=== PATIENT | female | born 1960 | race Caucasian/White ===

== ENCOUNTER 2016-10-10 13:29 | Emergency (ER) | payer MEDICAID, MEDICARE ==
[2016-10-10] MEDS ORDERED: MORPHINE SULFATE 10 MG/ML INJ IV ONE (14:57)
[2016-10-10] MEDS ORDERED: ONDANSETRON HCL INJ/PF 4 MG/2 ML SDV IV ONE (14:57)
--- NOTE | 2016-10-10 14:59 | ER Document Report ---
ED Medical Screen (RME) - General Chief Complaint: Flank Pain Stated Complaint: RIGHT FLANK PAIN Time Seen by Provider: 10/10/16 14:47 Mode of Arrival: Ambulatory Information source: Patient Notes: This is a 56-year-old female with a history of chronic pain and fibromyalgia who presents with sudden onset of right flank pain this morning. The flank pain radiates to the right side of the abdomen. She is also noted hematuria. No nausea or vomiting. No fevers or chills. No dysuria. She states it feels similar to prior kidney stone. I have greeted and performed a rapid initial assessment of this patient. A comprehensive ED assessment and evaluation of the patient, analysis of test results and completion of the medical decision making process will be conducted by additional ED providers. TRAVEL OUTSIDE OF THE [place] IN LAST 30 DAYS: No - Related Data Allergies/Adverse Reactions: No Known Allergies Allergy (Verified 10/10/16 13:36) Past Medical History - General Information source: Patient - Social History Cigarette use (# per day): Yes Frequency of alcohol use: Rare Drug Abuse: None Renal/ Medical History: Reports: Hx Kidney Stones. Denies: Hx Peritoneal Dialysis Physical Exam - Vital signs Vitals: Temp Pulse Resp BP Pulse Ox 97.8 F 81 16 165/94 H 98 10/10/16 13:36 10/10/16 13:36 10/10/16 13:36 10/10/16 13:36 10/10/16 13:36 Course - Vital Signs Vital signs: Temp Pulse Resp BP Pulse Ox 97.9 F 62 18 110/62 94 10/10/16 17:32 10/10/16 17:32 10/10/16 17:32 10/10/16 17:32 10/10/16 17:32 - Laboratory Result Diagrams: 10/10/16 15:40 10/10/16 15:40 Laboratory results interpreted by me: 10/10/16 10/10/16 10/10/16 15:20 15:40 15:40 MCV 100 H RDW 14.3 H Sodium 145.9 H Chloride 111 H Carbon Dioxide 21 L Urine Protein 100 H Urine Blood LARGE H Doctor's Discharge - Discharge Clinical Impression: Right ureteral calculus Condition: Stable Disposition: HOME, SELF-CARE Additional Instructions: KIDNEY STONE: You are passing or have passed a kidney stone. These stones are usually due to increased calcium or uric acid concentrations in your urine. Stones within the kidney itself are not painful. The pain occurs as the stone leaves the kidney to pass down the long tube, called the ureter, leading to the bladder. If the stone is small, it will usually pass by itself. Most patients can pass the stone at home. You will usually receive medications for pain, nausea or vomiting, and sometimes a medication to assist in passing the kidney stone. However, if the pain is very severe or if vomiting prevents you from taking oral pain medications, you may need to return for further treatment. Drink three or four quarts of fluids per day. You will be given pain medication (if needed) and urine strainers. Strain all your urine to see if the stone passes. If your doctor has asked you to bring the stone in for analysis, return with the stone once it has passed. Return if pain or vomiting become severe, if you develop a high fever, if you are unable to pass your urine, or if other unusual symptoms occur. TORADOL INJECTION: You have been given an injection of ketorolac tromethamine (Toradol). This is an excellent, safe drug for pain control. It also has potent antiinflammatory action. You should have significant pain relief within about one hour. Toradol is not addicting and is non-sedating. It does not interfere with driving or work. Call or return if you develop itching, hives, shortness of breath, or rash. ANTINAUSEA MEDICATION: You have been given a medication to suppress nausea and vomiting. This type of medication can be given as a shot, pill, or suppository. It will usually last for many hours. Pills and shots usually last six to eight hours, suppositories last about 12 hours. For the typical illness, only one or two doses of the medication may be necessary. Mild lightheadedness may occur. This type of medicine can cause drowsiness. Do not drive or operate dangerous machinery while under its influence. Do not mix with alcohol. See your doctor at once if you have muscle spasms or tightness, or uncontrollable motions (particularly of the neck, mouth, or jaw). Persistent vomiting or severe lightheadedness should also be evaluated by the physician. ORAL NARCOTIC MEDICATION: You have been given a prescription for pain control. This medication is a narcotic. It's best taken with food, as nausea can result if taken on an empty stomach. Don't operate machinery or drive within six hours of taking this medication. Do not combine this medicine with alcohol, or with any medication which can cause sedation (such as cold tablets or sleeping pills) unless you get permission from the physician. Narcotics tend to cause constipation. If possible, drink plenty of fluids and eat a diet high in fiber and fruits. FLOMAX (tamsulosin): Flomax is a medicine that shrinks the prostate gland. It helps relieve symptoms of benign prostatic hypertrophy, such as frequent urination, weak stream, and inadequate emptying. It has been shown to dilate the ureter (tube leading from the kidney to the bladder) and help in passing kidney stones Flomax usually causes no side effects. You may notice slight tiredness and dizziness for a few days. Some patients develop nasal congestion. Rarely, impotence can occur. If the symptoms are bothersome and don't improve with continued use, call your doctor. Contact your doctor or return if you have fainting spells, severe weakness or dizziness, shortness of breath, or rash. FOLLOW-UP CARE: If you have been referred to a physician for follow-up care, call the physician s office for an appointment as you were instructed or within the next two days. If you experience worsening or a significant change in your symptoms, notify the physician immediately or return to the Emergency Department at any time for re-evaluation. Return if you develop vomiting and cannot keep down medications, you have severe pain uncontrolled by the pain medication, or you develop high fevers. Prescriptions: Oxycodone HCl/Acetaminophen [Percocet 5-325 mg Tablet] 1 - 2 tab PO Q4H PRN #25 tablet PRN Reason: Promethazine HCl [Phenergan 25 mg Tablet] 1 - 2 tab PO Q6H PRN #15 tablet PRN Reason: Tamsulosin HCl [Flomax 0.4 mg Cap.sr] 0.4 mg PO DAILY #7 cap.sr.24h Referrals: SHAHLA LANDIS PA [Primary Care Provider] - Follow up as needed
[2016-10-10 15:39] LABS: APPEARANCE,URINE SLIGHTLY-CLOUDY; BILIRUBIN,URINE NEGATIVE (NEGATIVE); GLUCOSE, URINE NEGATIVE (NEGATIVE); KETONES,URINE NEGATIVE (NEGATIVE); LEUKOCYTE ESTERASE,URINE NEGATIVE (NEGATIVE); NITRITE,URINE NEGATIVE (NEGATIVE); PROTEIN,URINE 100 mg/dL (NEGATIVE); URINE SPECIFIC GRAVITY 1.009; UROBILINOGEN,URINE NEGATIVE mg/dL (<2.0)
[2016-10-10] MEDS ORDERED: KETOROLAC TROMETHAMINE INJ/PF 30 MG/1 ML SDV IV ONE (15:50)
[2016-10-10 15:56] LABS: ABSOLUTE BASOPHILS # (AUTO) 0.1 10^3/uL (0.0-0.2); ABSOLUTE EOSINOPHILS # (AUTO) 0.1 10^3/uL (0.0-0.6); ABSOLUTE LYMPHOCYTES (AUTO) 1.7 10^3/uL (0.5-4.7); ABSOLUTE MONOCYTES (AUTO) 0.6 10^3/uL (0.1-1.4); ABSOLUTE NEUT (AUTO) 7.3 10^3/uL (1.7-8.2); BASOPHILS % (AUTO) 0.8 % (0-2); EOSINOPHILS % (AUTO) 0.6 % (0-6); HEMATOCRIT 45.5 % (36.0-47.0); HEMOGLOBIN 15.2 g/dL (12.0-15.5); HGB HCT DIFFERENCE 0.1; LYMPHOCYTES % (AUTO) 17.5 % (13-45); MEAN CORPUSCULAR HEMOGLOBIN 33.3 pg (27.0-33.4); MEAN CORPUSCULAR HGB CONC 33.3 g/dL (32.0-36.0); MEAN CORPUSCULAR VOLUME 100 fl (80-97); MONOCYTES % (AUTO) 5.9 % (3-13); RED BLOOD COUNT 4.55 10^6/uL (3.72-5.28); RED CELL DISTRIBUTION WIDTH 14.3 % (11.5-14.0); SEGMENTED NEUTROPHILS % (AUTO) 75.2 % (42-78); WHITE BLOOD COUNT 9.7 10^3/uL (4.0-10.5)
[2016-10-10 16:11] LABS: ALANINE AMINOTRANSFERASE 26 U/L (9-52); ALBUMIN 4.4 g/dL (3.5-5.0); ALKALINE PHOSPHATASE 97 U/L (38-126); ANION GAP 14 (5-19); ASPARTATE AMINO TRANSFERASE 23 U/L (14-36); BILIRUBIN,DIRECT 0.3 mg/dL (0.0-0.4); BILIRUBIN,TOTAL 0.6 mg/dL (0.2-1.3); BLOOD UREA NITROGEN 15 mg/dL (7-20); CALCIUM 9.5 mg/dL (8.4-10.2); CARBON DIOXIDE 21 mmol/L (22-30); CHLORIDE 111 mmol/L (98-107); CREATININE RESULT 0.66 mg/dL (0.52-1.25); GLUCOSE 85 mg/dL (75-110); LIPASE 127.8 U/L (23-300); POTASSIUM 3.9 mmol/L (3.6-5.0); SODIUM 145.9 mmol/L (137-145); TOTAL PROTEIN 7.4 g/dL (6.3-8.2)
--- NOTE | 2016-10-10 16:38 | RADIOLOGY REPORT (SQ) ---
EXAM DESCRIPTION: CT LTD RENAL STONE PROTOCOL ON COMPLETED DATE/TIME: 10/10/2016 4:09 pm REASON FOR STUDY: right flank pain COMPARISON: None. TECHNIQUE: CT scan of the abdomen and pelvis performed without intravenous or oral contrast. Images reviewed with lung, soft tissue, and bone windows. Reconstructed coronal and sagittal MPR images revi ewed. All images stored on PACS. All CT scanners at this facility use dose modulation, iterative reconstruction, and/or weight based d osing when appropriate to reduce radiation dose to as low as reasonably achievable (ALARA). [facility]: Dose Right [facility]: CareDose [facility]: Dose Right [facility]: Teradose 4D [facility]: U-Systems RADIATION DOSE: 4.85mGy. LIMITATIONS: None. FINDINGS: LOWER CHEST: No significant findings. No nodules or infiltrates. NON-CONTRASTED LIVER, SPLEEN, ADRENALS: Evaluation limited by lack of IV contrast. No identified sign ificant masses. PANCREAS: No masses. No peripancreatic inflammatory changes. GALLBLADDER: No identified stones by CT criteria. No inflammatory changes to suggest cholecystitis. RIGHT KIDNEY AND URETER: No suspicious masses. Assessment limited by lack of IV contrast. Scattered , punctate calcifications. A 3 mm rounded calcification is seen within the proximal ureter with mild upstream ureterectasis and periureteric fat stranding. No hydronephrosis. LEFT KIDNEY AND URETER: No suspicious masses. Assessment limited by lack of IV contrast. Scattered punctate calcifications, with note made of a prominent parenchymal calcification measuring on the ord er of 3 to 4 mm within the superior pole. No hydronephrosis or hydroureter. AORTA AND RETROPERITONEUM: Atherosclerotic vascular calcifications. No aneurysm. No retroperitoneal masses or adenopathy. BOWEL AND PERITONEAL CAVITY: No obvious masses or inflammatory changes. No free fluid. APPENDIX: Surgically absent. PELVIS, BLADDER, AND ABDOMINAL WALL:No abnormal masses. No free fluid. Bladder normal. BONES: No significant findings. OTHER: No other significant finding. IMPRESSION: 3 mm rounded partially obstructing calcification within the right proximal ureter. No s ignificant hydronephrosis. TECHNICAL DOCUMENTATION: JOB ID: [id number] Quality ID # [id number]: Final reports with documentation of one or more dose reduction techniques (e.g., Au tomated exposure control, adjustment of the mA and/or kV according to patient size, use of iterative reconstruction technique) 2010 [email or web address]- All Rights Reserved
[2016-10-10] MEDS ORDERED: OXYCODONE-ACETAMINOPHEN 5-325 MG TABLET PO ONE (17:17)
[2016-10-10] MEDS ORDERED: TAMSULOSIN HCL 0.4 MG CAP.SR.24H PO ONE (17:17)
[2016-10-10] MEDS ORDERED: PROMETHAZINE HCL 25 MG TABLET PO ONE (17:17)
--- NOTE | 2016-10-10 17:32 | ER Document Report ---
ED GI/ - General Chief Complaint: Flank Pain Stated Complaint: RIGHT FLANK PAIN Time Seen by Provider: 10/10/16 14:47 Mode of Arrival: Ambulatory Notes: Patient is complaining of pain in her right lower flank region that began this morning. The pain goes around the right side and down into her right groin. It is constant and moderately severe. Patient has had nausea but not vomited. Denies any urinary tract symptoms. Has been told she has a stone in her left kidney, but has not passed it. Has not had any fever. PMH: Hysterectomy. Laparoscopy. Recently moved to this area from [place]. TRAVEL OUTSIDE OF THE [place] 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 EENT: Denies eye, ear, nose or mouth or throat pain or other symptoms. CARDIOVASCULAR: Denies chest pain. RESPIRATORY: Denies cough, chest congestion, or shortness of breath. GASTROINTESTINAL: See HPI. Denies vomiting or diarrhea. GENITOURINARY: Denies difficulty or painful urinating, urinary frequency, blood in urine. MUSCULOSKELETAL: Patient has back pain, see HPI. Denies neck pain. Denies joint pain or swelling. SKIN: Denies rash or skin lesions. NEUROLOGICAL: Denies LOC or altered mental status. Denies headache. Denies sensory loss or motor deficits. ALL OTHER SYSTEMS REVIEWED AND NEGATIVE. Physical Exam - Vital signs Vitals: Temp Pulse Resp BP Pulse Ox 97.8 F 81 16 165/94 H 98 10/10/16 13:36 10/10/16 13:36 10/10/16 13:36 10/10/16 13:36 10/10/16 13:36 Interpretation: Normal, Hypertensive - Mild - Notes Notes: PHYSICAL EXAMINATION: GENERAL: Well-appearing, in no acute distress. Appears to be uncomfortable. Vital signs are all essentially normal with the exception that her blood pressure is very slightly elevated HEAD: Atraumatic, normocephalic. NECK: Normal range of motion, supple. LUNGS: Breath sounds clear and equal bilaterally. HEART: Regular rate and rhythm without murmurs. ABDOMEN: Soft, nontender. No guarding or rebound. Bowel sounds are present and normal. BACK: Some mild percussion tenderness in the lower right flank. No other tenderness throughout entire back. EXTREMITIES: Normal range of motion without pain. NEUROLOGICAL: Normal speech, normal gait. Normal sensory, motor, and reflex exams. Awake, alert, and oriented x3. Cranial nerves normal. SKIN: Warm, dry, no rashes. Course - Vital Signs Vital signs: Temp Pulse Resp BP Pulse Ox 97.9 F 62 18 110/62 94 10/10/16 17:32 10/10/16 17:32 10/10/16 17:32 10/10/16 17:32 10/10/16 17:32 - Laboratory Result Diagrams: 10/10/16 15:40 10/10/16 15:40 Laboratory results interpreted by me: 10/10/16 10/10/16 10/10/16 15:20 15:40 15:40 MCV 100 H RDW 14.3 H Sodium 145.9 H Chloride 111 H Carbon Dioxide 21 L Urine Protein 100 H Urine Blood LARGE H - Diagnostic Test Radiology reviewed: Image reviewed, Reports reviewed - Patient has a 3 mm stone in the proximal right ureter without significant hydronephrosis. Discharge - Discharge Clinical Impression: Right ureteral calculus Condition: Stable Disposition: HOME, SELF-CARE Additional Instructions: KIDNEY STONE: You are passing or have passed a kidney stone. These stones are usually due to increased calcium or uric acid concentrations in your urine. Stones within the kidney itself are not painful. The pain occurs as the stone leaves the kidney to pass down the long tube, called the ureter, leading to the bladder. If the stone is small, it will usually pass by itself. Most patients can pass the stone at home. You will usually receive medications for pain, nausea or vomiting, and sometimes a medication to assist in passing the kidney stone. However, if the pain is very severe or if vomiting prevents you from taking oral pain medications, you may need to return for further treatment. Drink three or four quarts of fluids per day. You will be given pain medication (if needed) and urine strainers. Strain all your urine to see if the stone passes. If your doctor has asked you to bring the stone in for analysis, return with the stone once it has passed. Return if pain or vomiting become severe, if you develop a high fever, if you are unable to pass your urine, or if other unusual symptoms occur. TORADOL INJECTION: You have been given an injection of ketorolac tromethamine (Toradol). This is an excellent, safe drug for pain control. It also has potent antiinflammatory action. You should have significant pain relief within about one hour. Toradol is not addicting and is non-sedating. It does not interfere with driving or work. Call or return if you develop itching, hives, shortness of breath, or rash. ANTINAUSEA MEDICATION: You have been given a medication to suppress nausea and vomiting. This type of medication can be given as a shot, pill, or suppository. It will usually last for many hours. Pills and shots usually last six to eight hours, suppositories last about 12 hours. For the typical illness, only one or two doses of the medication may be necessary. Mild lightheadedness may occur. This type of medicine can cause drowsiness. Do not drive or operate dangerous machinery while under its influence. Do not mix with alcohol. See your doctor at once if you have muscle spasms or tightness, or uncontrollable motions (particularly of the neck, mouth, or jaw). Persistent vomiting or severe lightheadedness should also be evaluated by the physician. ORAL NARCOTIC MEDICATION: You have been given a prescription for pain control. This medication is a narcotic. It's best taken with food, as nausea can result if taken on an empty stomach. Don't operate machinery or drive within six hours of taking this medication. Do not combine this medicine with alcohol, or with any medication which can cause sedation (such as cold tablets or sleeping pills) unless you get permission from the physician. Narcotics tend to cause constipation. If possible, drink plenty of fluids and eat a diet high in fiber and fruits. FLOMAX (tamsulosin): Flomax is a medicine that shrinks the prostate gland. It helps relieve symptoms of benign prostatic hypertrophy, such as frequent urination, weak stream, and inadequate emptying. It has been shown to dilate the ureter (tube leading from the kidney to the bladder) and help in passing kidney stones Flomax usually causes no side effects. You may notice slight tiredness and dizziness for a few days. Some patients develop nasal congestion. Rarely, impotence can occur. If the symptoms are bothersome and don't improve with continued use, call your doctor. Contact your doctor or return if you have fainting spells, severe weakness or dizziness, shortness of breath, or rash. FOLLOW-UP CARE: If you have been referred to a physician for follow-up care, call the physician s office for an appointment as you were instructed or within the next two days. If you experience worsening or a significant change in your symptoms, notify the physician immediately or return to the Emergency Department at any time for re-evaluation. Return if you develop vomiting and cannot keep down medications, you have severe pain uncontrolled by the pain medication, or you develop high fevers. Prescriptions: Oxycodone HCl/Acetaminophen [Percocet 5-325 mg Tablet] 1 - 2 tab PO Q4H PRN #25 tablet PRN Reason: Promethazine HCl [Phenergan 25 mg Tablet] 1 - 2 tab PO Q6H PRN #15 tablet PRN Reason: Tamsulosin HCl [Flomax 0.4 mg Cap.sr] 0.4 mg PO DAILY #7 cap.sr.24h Referrals: SHAHLA LANDIS PA [Primary Care Provider] - Follow up as needed
[2016-10-10 17:33] VITALS: BP 110/62
== END 2016-10-10 17:57 | disposition home or self-care (01) ==
LOC: ER 13:29
DX: N20.1 Calculus of ureter (principal); R03.0 Elevated blood-pressure reading, without diagnosis of hypertension; F17.210 Nicotine dependence, cigarettes, uncomplicated; Z90.49 Acquired absence of other specified parts of digestive tract; Z90.710 Acquired absence of both cervix and uterus
CPT/HCPCS: 99284; 96374; 96375; 36415; 83690; 85025; 80053; 81001; 76380; J1885; A9270 ×3; J2405

== ENCOUNTER 2017-10-27 23:59 | Observation (INO) | payer MEDICARE, MEDICAID ==
[2017-10-28] MEDS ORDERED: ACETAMINOPHEN 325 MG TABLET PO ONE (01:04)
--- NOTE | 2017-10-28 01:08 | ER Document Report ---
ED Medical Screen (RME) - General Chief Complaint: Fall Stated Complaint: FALL/BACK PAIN Time Seen by Provider: 10/28/17 01:03 Mode of Arrival: Wheelchair Information source: Patient, Relative Notes: Patient and family report that patient was not feeling well around 3 PM while talking to her daughter. Patient and her daughter were in separate rooms at the time. Patient states that she did not lose consciousness although she did feel funny and fell. Patient since then has had persistent headache and feeling of drowsiness and not feeling right. Daughter states that patient is not acting her usual self. Patient without any chest pain, nausea, vomiting, or back pain. Patient does report mild cough. Patient denies any changes in her medications. 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 IN LAST 30 DAYS: No - Related Data Allergies/Adverse Reactions: No Known Allergies Allergy (Verified 10/10/16 13:36) Past Medical History Renal/ Medical History: Reports: Hx Kidney Stones. 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 Physical Exam - Vital signs Vitals: Temp Pulse Resp BP Pulse Ox 98.0 F 63 20 174/90 H 94 10/28/17 00:19 10/28/17 00:19 10/28/17 00:19 10/28/17 00:19 10/28/17 00:19 - Neurological [place] Coma Scale Eye Opening: Spontaneous [place] Coma Scale Verbal: Oriented [place] Coma Scale Motor: Obeys Commands [place] Coma Scale Total: 15 Speech: Other - Slow deliberate speech Course - Vital Signs Vital signs: Temp Pulse Resp BP Pulse Ox 98.0 F 63 20 174/90 H 94 10/28/17 00:19 10/28/17 00:19 10/28/17 00:19 10/28/17 00:19 10/28/17 00:19 Doctor's Discharge - Discharge Referrals: SHAHLA LANDIS PA [Primary Care Provider] - Follow up as needed
--- NOTE | 2017-10-28 01:45 | ER Document Report ---
ED General - General Mode of Arrival: Wheelchair TRAVEL OUTSIDE OF THE [place] IN LAST 30 DAYS: No <THOMAS STEVENSON - Last Filed: 10/28/17 06:26> <GARRETT BENAVIDEZ - Last Filed: 10/28/17 08:01> - General Chief Complaint: Fall Stated Complaint: FALL/BACK PAIN Time Seen by Provider: 10/28/17 01:03 Notes: Patient is a 57-year-old female presents with complaint of feeling very lightheaded like she is going to pass out. This was around 3 PM. She then developed a headache. With a headache she still having slurring of her speech has been ataxic. 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 She did not require any radiation or chemotherapy. She had no problems and surgery. She does not have a history of recurrent migraines or headaches. She denies recent fevers or infections. She denies taking new medications or any sedating medications. She denies any focal weakness or numbness into her extremities. (THOMAS STEVENSON) - Related Data Allergies/Adverse Reactions: No Known Allergies Allergy (Verified 10/10/16 13:36) Past Medical History - General Information source: Patient, Relative - Social History Smoking Status: Current Every Day Smoker Frequency of alcohol use: None Drug Abuse: None Family History: Reviewed & Not Pertinent Renal/ Medical History: Reports: Hx Kidney Stones. 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 <HTOMAS STEVENSON - Last Filed: 10/28/17 06:26> Review of Systems <THOMAS STEVENSON - Last Filed: 10/28/17 06:26> <GARRETT BENAVIDEZ - Last Filed: 10/28/17 08:01> - Review of Systems Notes: My Normal Review Basic REVIEW OF SYSTEMS: CONSTITUTIONAL : Denies fever, chills, or sweats. Denies recent illness. EENT: Denies eye, ear, throat, or mouth pain or symptoms. Denies nasal or sinus congestion. CARDIOVASCULAR: Denies chest pain. RESPIRATORY: Denies cough, cold, or chest congestion. Denies shortness of breath, difficulty breathing, or wheezing. GASTROINTESTINAL: Denies abdominal pain. Denies nausea, vomiting, or diarrhea. Denies constipation. Last BM: GENITOURINARY: Denies difficulty urinating, painful urination, burning, frequency, or blood in urine. MUSCULOSKELETAL: Denies neck or back pain or joint pain or swelling. SKIN: Denies rash or skin lesions. NEUROLOGICAL: Denies altered mental status or loss of consciousness. Has a headache. Denies weakness or paralysis or loss of use of either side. Some ataxia as well as some slurred speech and word finding difficulties.. Denies sensory or motor loss. ALL OTHER SYSTEMS REVIEWED AND NEGATIVE. (THOMAS STEVENSON) Physical Exam <THOMAS STEVENSON - Last Filed: 10/28/17 06:26> <GARRETT BENAVIDEZ - Last Filed: 10/28/17 08:01> - Vital signs Vitals: Temp Pulse Resp BP Pulse Ox 98.0 F 63 20 174/90 H 94 10/28/17 00:19 10/28/17 00:19 10/28/17 00:19 10/28/17 00:19 10/28/17 00:19 - Notes Notes: General Appearance: Well nourished, alert, cooperative, no acute distress, mild obvious discomfort. Vitals: reviewed, See vital signs table. Head: no swelling or tenderness to the head Eyes: PERRL, EOMI, Conjuctiva clear Mouth: No decreasd moisture Lungs: No wheezing, No rales, No rhonci, No accessory muscle use, good air exchange bilaterally. Heart: Normal rate, Regular rythm, No murmur, no rub Abdomen: Normal BS, soft, No rigidity, No abdominal tenderness, No guarding, no rebound, no abdominal masses, no organomegaly Extremities: strength 5/5 in all extremities, good pulses in all extremities, no swelling or tenderness in the extremities, no edema. Skin: warm, dry, appropriate color, no rash Neuro: Speech is occasionally slurred and she does appear to have some difficulty finding certain words to express herself, oriented x 3, normal affect , cranial nerves II through XII are intact with exception of occasional slurring of her speech. She has good strength in all 4 extremities. When she walks patient started to stagger and fall to the side. (THOMAS STEVENSON) Course - Laboratory Result Diagrams: 10/28/17 01:45 10/28/17 01:45 <THOMAS STEVENSON - Last Filed: 10/28/17 06:26> - Laboratory Result Diagrams: 10/28/17 01:45 10/28/17 01:45 <GARRETT BENAVIDEZ - Last Filed: 10/28/17 08:01> - Re-evaluation Re-evalutation: 10/28/17 01:44 Evaluate the patient have concerns that this could be subarachnoid hemorrhage or aneurysm bleed. I immediately spoke with the mechanical technologist, Garrett, agrees to take the patient needs CT scan talked with the charge nurse will put in an IV. I informed Garrett that the patient has bleeding on the dry skin that he can stop the dry skin; however, if there is no evidence of obvious bleeding on the dry scan then he should continue forward with the CTA. Patient denies any allergies to IV contrast. She says she has had in the past and has tolerated it well. 10/28/17 03:55 CT scan does not show any evidence of bleeding. I therefore went forward with a lumbar puncture. He was unable to get the lumbar puncture. Patient has a history of significant arthritis in her back. I therefore called the interventional radiologist personnel worker, Gurvinder Tapia, who said that he would come in and do under fluoroscopy. His speech in the meantime has improved. She still has a headache. We have medicated for headache and over this will help. Her gait is still off and she still staggers does need some assistance with gait. (THOMAS STEVENSON) 10/28/17 08:[address] Stevenson. Lumbar puncture shows no evidence of subarachnoid hemorrhage. Discussed case with hospitalist personnel worker Dr. Bradshaw, will admit patient under observation for MRI to rule out cerebellar infarct and telemetry (GARRETT BENAVIDEZ) - Vital Signs Vital signs: Temp Pulse Resp BP Pulse Ox 98.2 F 63 22 H 141/81 H 93 10/28/17 07:01 10/28/17 00:19 10/28/17 06:31 10/28/17 06:31 10/28/17 06:31 - Laboratory Laboratory results interpreted by me: 10/28/17 10/28/17 01:45 01:45 RDW 14.2 H Sodium 146.3 H Potassium 3.5 L Chloride 110 H - EKG Interpretation by Me Additional EKG results interpreted by me: 10/28/17 03:56 EKG is reviewed and interpreted by me. EKG shows sinus rhythm with rate [address] segment elevation or depression. No ischemic T-wave inversions. [place] interval, QRS duration, QTc intervals are within normal range. No old EKG available for comparison. (THOMAS STEVENSON) Discharge <THOMAS STEVENSON - Last Filed: 10/28/17 06:26> - Discharge Admitting Provider: [facility] Admitted: Telemetry <GARRETT BENAVIDEZ - Last Filed: 10/28/17 08:01> - Discharge Clinical Impression: Ataxia, Slurred speech Disposition: ADMITTED OBSERVATION Referrals: SHAHLA LANDIS PA [Primary Care Provider] - Follow up as needed
[2017-10-28 02:07] LABS: ABSOLUTE EOSINOPHILS # (AUTO) 0.1 10^3/uL (0.0-0.6); ABSOLUTE MONOCYTES (AUTO) 0.6 10^3/uL (0.1-1.4); ABSOLUTE NEUT (AUTO) 4.4 10^3/uL (1.7-8.2); BASOPHILS % (AUTO) 0.2 % (0-2); EOSINOPHILS % (AUTO) 1.1 % (0-6); HEMATOCRIT 43.5 % (36.0-47.0); HEMOGLOBIN 14.8 g/dL (12.0-15.5); LYMPHOCYTES % (AUTO) 28.4 % (13-45); MEAN CORPUSCULAR HEMOGLOBIN 32.3 pg (27.0-33.4); MEAN CORPUSCULAR HGB CONC 33.9 g/dL (32.0-36.0); MEAN CORPUSCULAR VOLUME 95 fl (80-97); MONOCYTES % (AUTO) 8.3 % (3-13); PLATELET COUNT 232 10^3/uL (150-450); RED BLOOD COUNT 4.57 10^6/uL (3.72-5.28); RED CELL DISTRIBUTION WIDTH 14.2 % (11.5-14.0); TOTAL CELLS COUNTED % (AUTO) 100 %
--- NOTE | 2017-10-28 02:10 | RADIOLOGY REPORT (SQ) ---
EXAM DESCRIPTION: XR CHEST 1 VIEW COMPLETED DATE/TME: 10/28/2017 01:04 CLINICAL HISTORY: BURDICK, near syncope COMPARISON: None. FINDINGS: Single frontal view of the chest. The cardiomediastinal silhouette has normal size and contour. No consolidation, pneumothorax, or pleural effusion. No displaced rib fractures identified. Upper abdominal soft tissues are unremarkable. IMPRESSION: 1. No acute pulmonary process identified.
[2017-10-28 02:15] LABS: ALANINE AMINOTRANSFERASE 13 U/L (9-52); ALBUMIN 3.9 g/dL (3.5-5.0); ALKALINE PHOSPHATASE 93 U/L (38-126); ANION GAP 9 (5-19); ASPARTATE AMINO TRANSFERASE 26 U/L (14-36); BILIRUBIN,DIRECT 0.3 mg/dL (0.0-0.4); BILIRUBIN,TOTAL 0.3 mg/dL (0.2-1.3); BLOOD UREA NITROGEN 15 mg/dL (7-20); CALCIUM 9.6 mg/dL (8.4-10.2); CARBON DIOXIDE 27 mmol/L (22-30); CHLORIDE 110 mmol/L (98-107); CREATINE KINASE 70 U/L (30-135); GLUCOSE 86 mg/dL (75-110); POTASSIUM 3.5 mmol/L (3.6-5.0); SODIUM 146.3 mmol/L (137-145); TOTAL PROTEIN 6.8 g/dL (6.3-8.2)
[2017-10-28 02:20] LABS: INTERNATIONAL RATION (INR) 0.84; PROTHROMBIN TIME 11.9 SEC (11.4-15.4)
[2017-10-28 02:21] LABS: PARTIAL THROMBOPLASTIN TIME 29.4 SEC (23.5-35.8)
[2017-10-28 02:26] LABS: CREATINE KINASE MB 0.61 ng/mL (<4.55)
[2017-10-28 02:30] LABS: TROPONIN I < 0.012 ng/mL
--- NOTE | 2017-10-28 02:33 | RADIOLOGY REPORT (SQ) ---
EXAM DESCRIPTION: CT HEAD ANGIOGRAPHY WITHOUT THEN WITH IV CONTRAST COMPLETED DATE/TME: 10/28/2017 01:11 EXAM DESCRIPTION: CT HEAD ANGIOGRAPHY WITH IV CONTRAST COMPLETED DATE/TME: 10/27/2017 23:52 CLINICAL HISTORY: 72 years, Female, CVA - Cerebral Vascular Accident ; COMPARISON: 10/27/2017 TECHNIQUE: Axial CTA images of the head obtained from the skull base to the skull apex before and after the the uncomplicated intravenous administration of 80 mL Omnipaque 350. 3-D/MIP reformatted images available. Contrast bolus timing is somewhat delayed with the dominant opacification within the venous system however the arterial system remains opacified. All CT scanners at this facility use dose modulation, iterative reconstruction, and/or weight based dosing when appropriate to reduce radiation dose to as low as reasonably achievable (ALARA). [facility]: Dose Right [facility]: CareDose [facility]: Dose Right [facility]: Teradose 4D [facility]: E4 Health [facility]: 1164.47 mGy-cm FINDINGS: CT head without: No acute intracranial hemorrhage identified. No mass, mass effect, shift of the midline, abnormal extra-axial fluid collection or CT evidence of acute ischemic change identified. The ventricular system is unremarkable. No acute abnormalities of the supratentorial white matter, basal ganglia, cerebellum, or brainstem. Region of encephalomalacia involving the left cerebellum. The visualized paranasal sinuses and the mastoids are clear. No skull fracture identified. Prior left occipital craniotomy. Visualized orbits and globes are unremarkable. Anterior circulation: The intracranial internal carotid arteries have normal course and caliber. The internal carotid arteries bifurcate into widely patent A1 and M1 segments of the anterior and middle cerebral arteries, respectively. The anterior communicating artery is patent. No evidence of stenosis/occlusion in the middle or anterior cerebral arteries. No distal vascular territory pruning. Bilateral origin posterior cerebral arteries. The posterior cerebral arteries are patent. No aneurysm identified. Posterior circulation: The intracranial vertebral arteries are patent. These vessels combined to produce a widely patent basilar artery. As the posterior cerebral arteries are predominantly supplied by the anterior circulation the basilar artery is relatively diminutive however there is no evidence of stenosis or occlusion. The basilar artery predominantly terminates in the superior cerebellar arteries with minimal supply to the posterior cerebral arteries. IMPRESSION: 1. No acute intracranial abnormality identified. 2. No abnormality identified within the intracranial circulation. 3. Encephalomalacia involving the left cerebellum with postoperative change of the occipital bone. TECHNICAL DOCUMENTATION: Quality ID # 436: Final reports with documentation of one or more dose reduction techniques (e.g., Automated exposure control, adjustment of the mA and/or kV according to patient size, use of iterative reconstruction technique) 2010 [employer]- All Rights Reserved Electronically signed by: Zak Davis 10/28/2017 1:32 AM
[2017-10-28] MEDS ORDERED: MORPHINE SULFATE 10 MG/ML INJ IV ONE ×3 (02:44→16:00)
[2017-10-28] MEDS ORDERED: LIDOCAINE 1% INJ-PF (10 MG/ML) 30 ML SDV INJ ONE ×3 (02:44→05:29)
[2017-10-28 03:48] LABS: APPEARANCE,URINE CLEAR; BILIRUBIN,URINE NEGATIVE (NEGATIVE); COLOR,URINE STRAW; GLUCOSE, URINE NEGATIVE (NEGATIVE); KETONES,URINE NEGATIVE (NEGATIVE); LEUKOCYTE ESTERASE,URINE NEGATIVE (NEGATIVE); NITRITE,URINE NEGATIVE (NEGATIVE); PROTEIN,URINE NEGATIVE (NEGATIVE); URINE SPECIFIC GRAVITY 1.031; UROBILINOGEN,URINE NEGATIVE mg/dL (<2.0)
[2017-10-28 04:13] LABS: URINE AMPHETAMINES SCREEN NEGATIVE; URINE BARBITURATES SCREEN NEGATIVE; URINE BENZODIAZEPINES SCREEN UNCONFIRMED POSITIVE; URINE COCAINE SCREEN NEGATIVE; URINE MARIJUANA (THC) SCREEN NEGATIVE; URINE METHADONE SCREEN NEGATIVE; URINE PHENCYCLIDINE SCREEN NEGATIVE
[2017-10-28] MEDS ORDERED: LIDOCAINE 1% INJ (10 MG/ML) 10 ML MDV INJ ONE (05:22)
[2017-10-28] MEDS ORDERED: LIDOCAINE 1% INJ-PF (10 MG/ML) 30 ML SDV ONE (05:31)
[2017-10-28 07:00] LABS: GLUCOSE,CSF 56 mg/dL (40-70); PROTEIN,CSF 49 mg/dL (12-60)
[2017-10-28 07:30] LABS: CSF TUBE NUMBER 1
[2017-10-28 07:31] LABS: APPEARANCE ALL TUBES CLEAR; COLOR ALL TUBES COLORLESS; CSF TUBE NUMBER 4; RED BLOOD CELL,CSF 0 /uL (0-10); WHITE BLOOD CELL,CSF 0 /uL (0-5)
[2017-10-28 07:32] LABS: APPEARANCE ALL TUBES CLEAR; COLOR ALL TUBES COLORLESS; RED BLOOD CELL,CSF 0 /uL (0-10); WHITE BLOOD CELL,CSF 1 /uL (0-5)
--- NOTE | 2017-10-28 07:49 | EKG REPORT ---
SEVERITY:- BORDERLINE ECG - SINUS RHYTHM PROBABLE LEFT ATRIAL ABNORMALITY : Confirmed by: Kamilla Cota MD 28-Oct-2017 07:48:51
--- NOTE | 2017-10-28 07:54 | RADIOLOGY REPORT (SQ) ---
EXAM DESCRIPTION: LUMBAR PUNCTURE COMPLETED DATE/TIME: 10/28/2017 6:16 am REASON FOR STUDY: headache COMPARISON: None. FLUOROSCOPY TIME: 11 second 3 images saved to PACS. TECHNIQUE: Fluoroscopic guided lumbar puncture with opening and closing pressures. LIMITATIONS: None. PROCEDURE: After written consent and assessment were obtained, the patient was brought into the fluo roscopy room and placed prone on the table. The patient's lower back was prepped in a sterile fashio n and an entry site was selected under live fluoroscopic guidance. The entry site was anesthetized wi th 1% lidocaine. A 22 gauge needle was advanced through the skin and into the thecal sac at the level of L2-L3. An opening pressure of 14 water units was obtained. After approximately 4ml of CSF was dr ained, a closing pressure of 9 water units was obtained. The needle was removed and a sterile bandage was placed of the site. Specimens were sent to the lab for testing. A fluoroscopic spot image was sa [place] to PACS confirming level access. FINDINGS: Clear CSF IMPRESSION: Lumbar puncture under fluoroscopy. No immediate complication. COMMENT: Patient medication list reviewed:Yes- Quality ID# 130:Eligible professional attests to docu menting in the medical record they obtained, updated, or reviewed the patient's current medications.. Quality ID 145: Final reports for procedures using fluoroscopy that document radiation exposure rafael lauro, or exposure time and number of fluorographic images (if radiation exposure indices are not avail able) TECHNICAL DOCUMENTATION: JOB ID: [id number] [employer]- All Rights Reserved Reading location - IP/workstation name: [email or web address]
[2017-10-28] MEDS ORDERED: OXYCODONE-ACETAMINOPHEN 5-325 MG TABLET PO PRN (08:17)
[2017-10-28] MEDS ORDERED: ONDANSETRON HCL INJ/PF 4 MG/2 ML SDV IV PRN (08:17)
[2017-10-28] MEDS ORDERED: ACETAMINOPHEN 325 MG TABLET PO PRN (08:17)
--- NOTE | 2017-10-28 08:40 | PDOC H&P ---
History of Present Illness Admission Date/PCP: DONITA HOOK History of Present Illness: ZEESHAN DUNN is a 57 year old female patient presents with chief complaints of headache. Patient is in apparently good state of health is up until 3 PM yesterday when she started to have a strange feeling which she could not have word to describe it and followed by accidental fall and landed on her side. She denies being blacked out or hitting her head. There is a mention of slurred speech and ataxic gait by the ER attending. Patient denies fever, chills, chest pain, palpitation, diaphoresis, nausea, vomiting, abdominal pain, diarrhea or urinary complaints. She has headache but denies dizziness, blurring of vision or any seizure activity. Of note patient has previous history of astrocytoma that was removed in 2000. She did not require any radiation or chemotherapy. Her CT scan of the head is negative. Lumbar puncture was done and subarachnoid hemorrhage was ruled out. Past Medical History Pulmonary Medical History: Reports: Chronic Obstructive Pulmonary Disease (COPD) Musculoskeltal Medical History: Reports: Arthritis Past Surgical History Past Surgical History: Reports: Appendectomy, Hysterectomy Social History Smoking Status: Current Every Day Smoker Frequency of Alcohol Use: None Hx Recreational Drug Use: No Drugs: None - Advance Directive Resuscitation Status: Full Code Family History Family History: Reviewed & Not Pertinent, CVA, Malignancy, Other - Seizure Parental Family History Reviewed: Yes Children Family History Reviewed: Yes Sibling(s) Family History Reviewed.: Yes Medication/Allergy Home Medications: Oxycodone HCl/Acetaminophen [Percocet 5-325 mg Tablet] 1 - 2 tab PO Q4H PRN #25 tablet 10/10/16 Promethazine HCl [Phenergan 25 mg Tablet] 1 - 2 tab PO Q6H PRN #15 tablet Tamsulosin HCl [Flomax 0.4 mg Cap.sr] 0.4 mg PO DAILY #7 cap.sr.24h 10/10/16 Allergies/Adverse Reactions: No Known Allergies Allergy (Verified 10/10/16 13:36) Review of Systems Constitutional: ABSENT: chills, fever(s), headache(s), weight gain, weight loss Eyes: ABSENT: visual disturbances Cardiovascular: ABSENT: chest pain, dyspnea on exertion, edema, orthropnea, palpitations Respiratory: ABSENT: cough, hemoptysis Gastrointestinal: ABSENT: abdominal pain, constipation, diarrhea, hematemesis, hematochezia, nausea, vomiting Musculoskeletal: ABSENT: joint swelling Neurological: ABSENT: abnormal gait, abnormal speech, confusion, dizziness, focal weakness, syncope Psychiatric: PRESENT: depression. ABSENT: anxiety, homidical ideation, suicidal ideation Physical Exam Vital Signs: Temp Pulse Resp BP Pulse Ox 98.2 F 63 19 142/81 H 93 10/28/17 07:01 10/28/17 00:19 10/28/17 08:01 10/28/17 08:01 10/28/17 08:01 Intake & Output 10/27/17 10/28/17 10/29/17 06:59 06:59 06:59 Weight 56.4 kg General appearance: PRESENT: no acute distress, well-developed, well-nourished Head exam: PRESENT: atraumatic, normocephalic Eye exam: PRESENT: conjunctiva pink, EOMI, PERRLA. ABSENT: scleral icterus Ear exam: PRESENT: normal external ear exam Mouth exam: PRESENT: moist, tongue midline Neck exam: ABSENT: carotid bruit, JVD, lymphadenopathy, thyromegaly Respiratory exam: PRESENT: clear to auscultation ethan. ABSENT: rales, rhonchi, wheezes Cardiovascular exam: PRESENT: RRR. ABSENT: diastolic murmur, rubs, systolic murmur Pulses: PRESENT: normal dorsalis pedis pul Vascular exam: PRESENT: normal capillary refill GI/Abdominal exam: PRESENT: normal bowel sounds, soft. ABSENT: distended, guarding, mass, organolmegaly, rebound, tenderness Rectal exam: PRESENT: deferred Extremities exam: PRESENT: full ROM. ABSENT: calf tenderness, clubbing, pedal edema Neurological exam: PRESENT: alert, awake, oriented to person, oriented to place , oriented to time, oriented to situation. ABSENT: motor sensory deficit Psychiatric exam: PRESENT: appropriate affect, normal mood. ABSENT: homicidal ideation, suicidal ideation Skin exam: PRESENT: dry, intact, warm. ABSENT: cyanosis, rash Results Laboratory Results: 10/28/17 01:45 10/28/17 01:45 10/28/17 10/28/17 10/28/17 01:45 01:45 03:37 WBC 7.0 RBC 4.57 Hgb 14.8 Hct 43.5 MCV 95 MCH 32.3 MCHC 33.9 RDW 14.2 H Plt Count 232 Seg Neutrophils % 62.0 Lymphocytes % 28.4 Monocytes % 8.3 Eosinophils % 1.1 Basophils % 0.2 Absolute Neutrophils 4.4 Absolute Lymphocytes 2.0 Absolute Monocytes 0.6 Absolute Eosinophils 0.1 Absolute Basophils 0.0 Sodium 146.3 H Potassium 3.5 L Chloride 110 H Carbon Dioxide 27 Anion Gap 9 BUN 15 Creatinine 0.77 Est GFR ( Amer) > 60 Est GFR (Non-Af Amer) > 60 Glucose 86 Calcium 9.6 Total Bilirubin 0.3 AST 26 ALT 13 Alkaline Phosphatase 93 Total Protein 6.8 Albumin 3.9 Urine Color STRAW Urine Appearance CLEAR Urine pH 6.0 Ur Specific [place] 1.031 Urine Protein NEGATIVE Urine Glucose (UA) NEGATIVE Urine Ketones NEGATIVE Urine Blood NEGATIVE Urine Nitrite NEGATIVE Ur Leukocyte Esterase NEGATIVE Urine WBC (Auto) 0 Urine RBC (Auto) 1 Fluid Tube Number CSF Volume CSF Appearance CSF Color CSF WBC CSF RBC CSF Glucose CSF Total Protein 10/28/17 10/28/17 10/28/17 05:56 05:56 05:56 WBC RBC Hgb Hct MCV MCH MCHC RDW Plt Count Seg Neutrophils % Lymphocytes % Monocytes % Eosinophils % Basophils % Absolute Neutrophils Absolute Lymphocytes Absolute Monocytes Absolute Eosinophils Absolute Basophils Sodium Potassium Chloride Carbon Dioxide Anion Gap BUN Creatinine Est GFR ( Amer) Est GFR (Non-Af Amer) Glucose Calcium Total Bilirubin AST ALT Alkaline Phosphatase Total Protein Albumin Urine Color Urine Appearance Urine pH Ur Specific [place] Urine Protein Urine Glucose (UA) Urine Ketones Urine Blood Urine Nitrite Ur Leukocyte Esterase Urine WBC (Auto) Urine RBC (Auto) Fluid Tube Number 1 4 CSF Volume 4.0 4.0 CSF Appearance CLEAR CLEAR CSF Color COLORLESS COLORLESS CSF WBC 0 1 CSF RBC 0 0 CSF Glucose 56 CSF Total Protein 49 10/28/17 10/28/17 01:45 01:45 Creatine Kinase 70 CK-MB (CK-2) 0.61 Troponin I < 0.012 Impressions: Chest X-Ray 10/28/17 01:04 IMPRESSION: 1. No acute pulmonary process identified. Head CTA 10/28/17 01:11 IMPRESSION: 1. No acute intracranial abnormality identified. 2. No abnormality identified within the intracranial circulation. 3. Encephalomalacia involving the left cerebellum with postoperative change of the occipital bone. TECHNICAL DOCUMENTATION: Quality ID # 436: Final reports with documentation of one or more dose reduction techniques (e.g., Automated exposure control, adjustment of the mA and/or kV according to patient size, use of iterative reconstruction technique) 2010 [employer]- All Rights Reserved Lumbar Puncture 10/28/17 05:13 IMPRESSION: Lumbar puncture under fluoroscopy. No immediate complication. Assessment & Plan - Diagnosis (1) TIA (transient ischemic attack) Is this a current diagnosis for this admission?: Yes Plan: Patient has sudden onset slurred speech and ataxia and severe headache. CT of the head is negative. Lumbar puncture is negative for subarachnoid hemorrhage. MRI of the brain with and without contrast requested (2) Depression Qualifiers: Depression Type: other depression Qualified Code(s): F32.89 - Other specified depressive episodes Is this a current diagnosis for this admission?: Yes Plan: Continue her home Zoloft (3) COPD (chronic obstructive pulmonary disease) Qualifiers: Emphysema type: unspecified Is this a current diagnosis for this admission?: Yes Plan: As needed bronchodilator (4) Benzodiazepine dependence Is this a current diagnosis for this admission?: Yes Plan: Patient has been started on diazepam to avoid withdrawal. (5) Tobacco dependence Is this a current diagnosis for this admission?: Yes Plan: Patient counseled and encouraged to quit smoking. (6) History of astrocytoma Is this a current diagnosis for this admission?: Yes Plan: MRI of the brain requested to rule out recurrence.
[2017-10-28] MEDS: ENOXAPARIN SODIUM INJ 40 MG/0.4 ML DISP.SYRIN SUBCUT SCH (09:09)
[2017-10-28] MEDS: DIAZEPAM 5 MG TABLET PO SCH ×2 (09:13→21:10)
[2017-10-28 09:20] LABS: CHOLESTEROL 263.51 mg/dL (0-200); TRIGLYCERIDES 431 mg/dL (<150)
[2017-10-28 09:30] LABS: DIRECT LDL 174 mg/dL (<100)
[2017-10-28] MEDS ORDERED: METOCLOPRAMIDE HCL INJ/PF 10 MG/2 ML SDV IV PRN ×2 (11:06→12:30)
[2017-10-28] MEDS: KETOROLAC TROMETHAMINE INJ/PF 30 MG/1 ML SDV IV PRN (11:15)
--- NOTE | 2017-10-28 11:28 | RADIOLOGY REPORT (SQ) ---
EXAM DESCRIPTION: MRI HEAD COMBO COMPLETED DATE/TIME: 10/28/2017 10:41 am REASON FOR STUDY: TIA, severe headache COMPARISON: CT angio brain 10/28/2017 TECHNIQUE: Multiplanar imaging includes noncontrasted T1, T2, FLAIR, diffusion with ADC map and post gadolinium contrast T1 sequences. Images stored on PACS. CONTRAST TYPE AND DOSE: 10 mL Prohance. RENAL FUNCTION: GFR > 60. LIMITATIONS: None. FINDINGS: ANATOMY: No anomalies. Normal vascular flow voids. Pituitary fossa normal. CSF SPACES: Normal in size and contour. No hemorrhage. CEREBRUM: Sulci and gyri normal in size and contour. Normal white matter signal on FLAIR imaging. No evidence of hemorrhage, mass, or extraaxial fluid collection. No abnormal enhancement post contrast. POSTERIOR FOSSA: Post left occipital craniotomy. There is encephalomalacia with postoperative cavity in the left cerebellar hemisphere measuring 3.6 cm AP x 3 cm transverse x 3 cm craniocaudad. There is minimal surrounding scarring or gliosis with a thin halo of increased signal on FLAIR images. No abnormal contrast enhancement. No posterior fossa acute ischemic change, acute intracranial hemorrha ge, mass effect or midline shift. Internal auditory canals, cerebellopontine angles, mastoids normal . DIFFUSION IMAGING: Negative for acute or subacute infarction. ORBITS: No masses. Globes normal. PARANASAL SINUSES: No fluid levels. Mucosa normal. OTHER: No other significant finding. IMPRESSION: Old postoperative change in the left posterior fossa. No contrast enhancement or mass e ffect/signal abnormalities worrisome for recurrent posterior fossa tumor. No MR evidence of acute ischemic change. EVIDENCE OF ACUTE STROKE: NO. TECHNICAL DOCUMENTATION: JOB ID: [id number] 0000 [employer])- All Rights Reserved Reading location - IP/workstation name: [email or web address]
[2017-10-28] MEDS ORDERED: NICOTINE 14 MG/24 HR PATCH.TD24 TD SCH (12:30)
[2017-10-28] MEDS ORDERED: NICOTINE 14 MG/24 HR PATCH.TD24 TD ONE (13:00)
[2017-10-28] MEDS ORDERED: METOPROLOL TARTRATE PF/INJ 5 MG/5 ML SDV IV ONE (15:27)
[2017-10-28] MEDS ORDERED: HYDRALAZINE HCL 50 MG TABLET PO ONE (16:00)
[2017-10-28] MEDS ORDERED: HYDRALAZINE HCL INJ/PF 20 MG/1 ML SDV IV ONE (16:15)
[2017-10-28] MEDS: HYDRALAZINE HCL 50 MG TABLET PO SCH (21:08)
[2017-10-29] MEDS: KETOROLAC TROMETHAMINE INJ/PF 30 MG/1 ML SDV IV PRN (02:34)
[2017-10-29 05:01] LABS: HEMATOCRIT 43.8 % (36.0-47.0); HEMOGLOBIN 14.9 g/dL (12.0-15.5); MEAN CORPUSCULAR HEMOGLOBIN 32.3 pg (27.0-33.4); MEAN CORPUSCULAR HGB CONC 34.1 g/dL (32.0-36.0); MEAN CORPUSCULAR VOLUME 95 fl (80-97); PLATELET COUNT 214 10^3/uL (150-450); RED BLOOD COUNT 4.61 10^6/uL (3.72-5.28); RED CELL DISTRIBUTION WIDTH 13.9 % (11.5-14.0); WHITE BLOOD COUNT 8.9 10^3/uL (4.0-10.5)
[2017-10-29 05:38] LABS: ANION GAP 12 (5-19); BLOOD UREA NITROGEN 14 mg/dL (7-20); CALCIUM 9.2 mg/dL (8.4-10.2); CARBON DIOXIDE 26 mmol/L (22-30); CHLORIDE 105 mmol/L (98-107); GLUCOSE 88 mg/dL (75-110); POTASSIUM 3.3 mmol/L (3.6-5.0); SODIUM 142.8 mmol/L (137-145)
[2017-10-29] MEDS ORDERED: LANSOPRAZOLE 30 MG TAB.RAP.DR PO SCH (06:00)
[2017-10-29] MEDS: HYDRALAZINE HCL 50 MG TABLET PO SCH (06:04)
[2017-10-29 09:07] VITALS: BP 126/68
--- NOTE | 2017-10-29 09:13 | PDOC DISCHARGE SUMMARY ---
General - Admit/Disc Date/PCP Admission Date/Primary Care Provider: 10/28/17 09:15 DONITA HOOK Discharge Date: 10/29/17 - Discharge Diagnosis (1) Benzodiazepine dependence Is this a current diagnosis for this admission?: Yes Summary: Limit benzodiazepine use. Patient's extensive workup including lumbar puncture , MRI brain, orthostatic blood pressures biochemical and physical evaluation completely benign. Wean benzodiazepine use - Additional Information Resuscitation Status: Full Code Discharge Diet: As Tolerated Discharge Activity: Activity As Tolerated Home Medications: Diazepam [Valium 5 mg Tablet] 5 mg PO QPMP PRN 10/28/17 Diazepam [Valium] 10 mg PO QAMP PRN 10/28/17 Linaclotide [Linzess] 290 mcg PO DAILY 10/28/17 Sertraline HCl [Zoloft] 150 mg PO DAILY 10/28/17 Simvastatin [Zocor 20 mg Tablet] 20 mg PO QPM 10/28/17 Trazodone HCl [Desyrel 50 mg Tablet] 50 mg PO QHS 10/28/17 History of Present Illness History of Present Illness: ZEESHAN DUNN is a 57 year old female Hospital Course Hospital Course: Extensive workup negative, biochemically and bio physically stable for discharge Physical Exam Vital Signs: Temp Pulse Resp BP Pulse Ox 98.4 F 84 16 126/68 H 90 L 10/29/17 07:45 10/29/17 07:45 10/29/17 07:45 10/29/17 07:45 10/29/17 07:45 Intake & Output 10/27/17 10/28/17 10/29/17 11:59 11:59 11:59 Intake Total 500 Balance 500 Weight 56.1 kg General appearance: PRESENT: no acute distress, well-developed, well-nourished Head exam: PRESENT: atraumatic, normocephalic Eye exam: PRESENT: conjunctiva pink, EOMI, PERRLA. ABSENT: scleral icterus Ear exam: PRESENT: normal external ear exam Mouth exam: PRESENT: moist, tongue midline Neck exam: ABSENT: carotid bruit, JVD, lymphadenopathy, thyromegaly Respiratory exam: PRESENT: clear to auscultation ethan. ABSENT: rales, rhonchi, wheezes Cardiovascular exam: PRESENT: RRR. ABSENT: diastolic murmur, rubs, systolic murmur Pulses: PRESENT: normal dorsalis pedis pul Vascular exam: PRESENT: normal capillary refill GI/Abdominal exam: PRESENT: normal bowel sounds, soft. ABSENT: distended, guarding, mass, organolmegaly, rebound, tenderness Rectal exam: PRESENT: deferred Extremities exam: PRESENT: full ROM. ABSENT: calf tenderness, clubbing, pedal edema Neurological exam: PRESENT: alert, awake, oriented to person, oriented to place , oriented to time, oriented to situation, CN II-XII grossly intact. ABSENT: motor sensory deficit Psychiatric exam: PRESENT: appropriate affect, normal mood. ABSENT: homicidal ideation, suicidal ideation Skin exam: PRESENT: dry, intact, warm. ABSENT: cyanosis, rash Results Laboratory Results: 10/29/17 04:42 10/29/17 04:42 10/29/17 10/29/17 04:42 04:42 WBC 8.9 RBC 4.61 Hgb 14.9 Hct 43.8 MCV 95 MCH 32.3 MCHC 34.1 RDW 13.9 Plt Count 214 Sodium 142.8 Potassium 3.3 L Chloride 105 Carbon Dioxide 26 Anion Gap 12 BUN 14 Creatinine 0.63 Est GFR ( Amer) > 60 Est GFR (Non-Af Amer) > 60 Glucose 88 Calcium 9.2 Impressions: Head MRI 10/28/17 00:00 IMPRESSION: Old postoperative change in the left posterior fossa. No contrast enhancement or mass effect/signal abnormalities worrisome for recurrent posterior fossa tumor. No MR evidence of acute ischemic change. EVIDENCE OF ACUTE STROKE: NO. Chest X-Ray 10/28/17 01:04 IMPRESSION: 1. No acute pulmonary process identified. Head CTA 10/28/17 01:11 IMPRESSION: 1. No acute intracranial abnormality identified. 2. No abnormality identified within the intracranial circulation. 3. Encephalomalacia involving the left cerebellum with postoperative change of the occipital bone. TECHNICAL DOCUMENTATION: Quality ID # [id number]: Final reports with documentation of one or more dose reduction techniques (e.g., Automated exposure control, adjustment of the mA and/or kV according to patient size, use of iterative reconstruction technique) 2010 [employer]- All Rights Reserved Lumbar Puncture 10/28/17 05:13 IMPRESSION: Lumbar puncture under fluoroscopy. No immediate complication. Qualifiers - * PATIENT BEING DISCHARGED WITH ANY OF THE FOLLOWING DIAGNOSIS: No VTE patient discharged on overlapping Therapy?: No
[2017-10-29] MEDS: ENOXAPARIN SODIUM INJ 40 MG/0.4 ML DISP.SYRIN SUBCUT SCH (09:17)
[2017-10-29] MEDS: DIAZEPAM 5 MG TABLET PO SCH (09:17)
== END 2017-10-29 12:00 | disposition home or self-care (01) ==
LOC: ER 23:59 → EH 10-28 09:15 → 5 10-28 13:15
PROVIDERS: ADMIT Internal Medicine; ATTEND Internal Medicine
PROC: 00JU3ZZ Inspection of Spinal Canal, Percutaneous Approach (ICD-10-PCS; principal; 2017-10-28)
PROC: 009U3ZX Drainage of Spinal Canal, Percutaneous Approach, Diagnostic (ICD-10-PCS; 2017-10-28)
DX: F13.20 Sedative, hypnotic or anxiolytic dependence, uncomplicated (principal); R51 Headache; W19.XXXA Unspecified fall, initial encounter; Z79.899 Other long term (current) drug therapy; R47.81 Slurred speech; R26.0 Ataxic gait; F17.200 Nicotine dependence, unspecified, uncomplicated; F32.89 Other specified depressive episodes; G93.89 Other specified disorders of brain; J43.9 Emphysema, unspecified; R42 Dizziness and giddiness; M13.88 Other specified arthritis, other site; R05 Cough; R40.2252 Coma scale, best verbal response, oriented, at arrival to emergency department; R40.2362 Coma scale, best motor response, obeys commands, at arrival to emergency department; R40.2142 Coma scale, eyes open, spontaneous, at arrival to emergency department; Z98.890 Other specified postprocedural states; Z85.841 Personal history of malignant neoplasm of brain; Z90.49 Acquired absence of other specified parts of digestive tract; Z82.3 Family history of stroke
CPT/HCPCS: 62270 ×2; 93005; 99285; 36415 ×2; 82553; 80307 ×2; 82550; 85025; 85027; 85610; 85730; 89050; 82945; 84157; 80048; 80053; 81001; 84484; 80061; 70553; 71045; 77003; 70496; 93010; G0378 ×3; A9576; A9270 ×6; J0360; J3490 ×3; J1885 ×2; J2765; J2270; J1650

== ENCOUNTER 2019-04-12 14:13 | Emergency (ER) | payer MEDICARE, MEDICAID ==
--- NOTE | 2019-04-12 16:02 | ER Document Report ---
ED Medical Screen (RME) - General Chief Complaint: Back Pain Stated Complaint: BACK ISSUES Time Seen by Provider: 04/12/19 15:51 Primary Care Provider: SHAHLA LANDIS PA [Primary Care Provider] - Follow up as needed Mode of Arrival: Ambulatory Information source: Patient Notes: 59-year-old female presented to ED for complaint of severe low back pain that has been being treated by Dr. Anne pain management with spinal injections. She states when she received the last spinal injection the pain became much worse. Dr. Anne called the ED requesting an MRI be done of the lumbar spine to rule out hematoma versus bony fragment. The MRI has been ordered as well as blood. I have greeted and performed a rapid initial assessment of this patient. A comprehensive ED assessment and evaluation of the patient, analysis of test results and completion of medical decision making process will be conducted by an additional ED providers. TRAVEL OUTSIDE OF THE [place] IN LAST 30 DAYS: No - Related Data Allergies/Adverse Reactions: No Known Allergies Allergy (Verified 10/10/16 13:36) Past Medical History Pulmonary Medical History: Reports: Hx COPD, Hx Pneumonia Renal/ Medical History: Reports: Hx Kidney Stones. 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
[2019-04-12 16:35] LABS: ABSOLUTE BASOPHILS # (AUTO) 0.1 10^3/uL (0.0-0.2); ABSOLUTE LYMPHOCYTES (AUTO) 1.1 10^3/uL (0.5-4.7); ABSOLUTE MONOCYTES (AUTO) 0.7 10^3/uL (0.1-1.4); ABSOLUTE NEUT (AUTO) 7.4 10^3/uL (1.7-8.2); BASOPHILS % (AUTO) 0.9 % (0-2); EOSINOPHILS % (AUTO) 0.4 % (0-6); HEMATOCRIT 53.2 % (36.0-47.0); LYMPHOCYTES % (AUTO) 11.3 % (13-45); MEAN CORPUSCULAR HEMOGLOBIN 33.5 pg (27.0-33.4); MEAN CORPUSCULAR HGB CONC 33.8 g/dL (32.0-36.0); MEAN CORPUSCULAR VOLUME 99 fl (80-97); PLATELET COUNT 222 10^3/uL (150-450); RED BLOOD COUNT 5.37 10^6/uL (3.72-5.28); RED CELL DISTRIBUTION WIDTH 13.3 % (11.5-14.0); SEGMENTED NEUTROPHILS % (AUTO) 79.4 % (42-78); TOTAL CELLS COUNTED % (AUTO) 100 %; WHITE BLOOD COUNT 9.3 10^3/uL (4.0-10.5)
[2019-04-12 16:49] LABS: ALBUMIN 5.2 g/dL (3.5-5.0); ALKALINE PHOSPHATASE 107 U/L (38-126); ANION GAP 16 (5-19); ASPARTATE AMINO TRANSFERASE 19 U/L (14-36); BILIRUBIN,DIRECT 0.2 mg/dL (0.0-0.4); BILIRUBIN,TOTAL 0.5 mg/dL (0.2-1.3); BLOOD UREA NITROGEN 18 mg/dL (7-20); CALCIUM 10.4 mg/dL (8.4-10.2); CARBON DIOXIDE 20 mmol/L (22-30); CHLORIDE 105 mmol/L (98-107); GLUCOSE 107 mg/dL (75-110); POTASSIUM 3.2 mmol/L (3.6-5.0); TOTAL PROTEIN 8.5 g/dL (6.3-8.2)
[2019-04-12 17:04] LABS: APPEARANCE,URINE CLEAR; BILIRUBIN,URINE NEGATIVE (NEGATIVE); COLOR,URINE YELLOW; GLUCOSE, URINE NEGATIVE (NEGATIVE); KETONES,URINE NEGATIVE (NEGATIVE); PROTEIN,URINE 30 mg/dL (NEGATIVE); URINE SPECIFIC GRAVITY 1.012; UROBILINOGEN,URINE NEGATIVE mg/dL (<2.0)
--- NOTE | 2019-04-12 18:44 | ER Document Report ---
ED General - General Chief Complaint: Back Pain Stated Complaint: BACK ISSUES Time Seen by Provider: 04/12/19 15:51 Primary Care Provider: SHAHLA LANDIS PA [ALLIED HEALTH PROFESSIONAL] - Follow up as needed Mode of Arrival: Ambulatory Information source: Patient TRAVEL OUTSIDE OF THE [place] IN LAST 30 DAYS: No - HPI Onset: Other - Patient has a chronic history of low back pain and is followed in the pain clinic. 5 days ago she had 1 her routine injections of steroids in her lower lumbar back area. She did not get any improvement over the past 5 days therefore her pain management doctor sent her to the emergency department to get an MRI scan of her lumbar sacral spine. Denies any problems with walking bowel movements or urination. Patient does not take any narcotic pain medications and is not NCE and not seeking any medications of that sort. Quality of pain: Dull Severity: Severe Pain Level: 5 Exacerbated by: Other - Patient is in chronic pain so no position makes any difference. - Related Data Allergies/Adverse Reactions: No Known Allergies Allergy (Verified 10/10/16 13:36) Past Medical History - General Information source: Patient - Social History Smoking Status: Unknown if Ever Smoked Family History: Reviewed & Not Pertinent, CVA, Malignancy, Other - Seizure Patient has suicidal ideation: No Patient has homicidal ideation: No - Past Medical History Cardiac Medical History: Reports: Hx Hypercholesterolemia, Hx Hypertension Pulmonary Medical History: Reports: Hx COPD, Hx Pneumonia Renal/ Medical History: Reports: Hx Kidney Stones. 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 Review of Systems - Review of Systems Constitutional: No symptoms reported EENT: No symptoms reported Cardiovascular: No symptoms reported Respiratory: No symptoms reported Gastrointestinal: No symptoms reported Genitourinary: No symptoms reported Musculoskeletal: See HPI, Back pain Neurological/Psychological: See HPI Physical Exam - Vital signs Vitals: Temp Pulse Resp BP Pulse Ox 97.4 F 82 16 134/74 H 98 04/12/19 14:25 04/12/19 14:25 04/12/19 14:25 04/12/19 14:25 04/12/19 14:25 Interpretation: Normal - General General appearance: Appears well, Alert - HEENT Head: Normocephalic, Atraumatic Eyes: Normal Pupils: PERRL - Respiratory Respiratory status: No respiratory distress Chest status: Nontender Breath sounds: Normal Chest palpation: Normal - Cardiovascular Rhythm: Regular Heart sounds: Normal auscultation Murmur: No - Abdominal Inspection: Normal Distension: No distension Bowel sounds: Normal Tenderness: Nontender Organomegaly: No organomegaly - Back Back: Normal, Nontender, Tender - Extremities General upper extremity: Normal inspection, Nontender, Normal color, Normal ROM, Normal temperature General lower extremity: Normal inspection, Nontender, Normal color, Normal ROM, Normal temperature, Normal weight bearing. No: Neelam's sign - Neurological Neuro grossly intact: Yes Cognition: Normal Orientation: AAOx4 [place] Coma Scale Eye Opening: Spontaneous Lola Coma Scale Verbal: Oriented [place] Coma Scale Motor: Obeys Commands Lola Coma Scale Total: 15 Speech: Normal Motor strength normal: LUE, RUE, LLE, RLE Sensory: Normal - Psychological Associated symptoms: Normal affect, Normal mood - Skin Skin Temperature: Warm Skin Moisture: Dry Skin Color: Normal Course - Vital Signs Vital signs: Temp Pulse Resp BP Pulse Ox 97.4 F 82 16 134/74 H 98 04/12/19 15:56 04/12/19 14:25 04/12/19 15:56 04/12/19 14:25 04/12/19 15:56 - Laboratory Result Diagrams: 04/12/19 16:13 04/12/19 16:13 Laboratory results interpreted by me: 04/12/19 04/12/19 04/12/19 16:13 16:13 16:13 RBC 5.37 H Hgb 18.0 H Hct 53.2 H MCV 99 H MCH 33.5 H Lymph % (Auto) 11.3 L Seg Neutrophils % 79.4 H Potassium 3.2 L Carbon Dioxide 20 L Calcium 10.4 H Total Protein 8.5 H Albumin 5.2 H Urine Protein 30 H - Diagnostic Test Radiology reviewed: Image reviewed, Reports reviewed Discharge - Discharge Clinical Impression: Chronic low back pain without sciatica, Central stenosis of spinal canal Disposition: HOME, SELF-CARE Instructions: Low Back Pain ([facility]) Additional Instructions: Follow-up with chronic pain management doctor in 1 to 2 days Referrals: SHAHLA LANDIS PA [ALLIED HEALTH PROFESSIONAL] - Follow up as needed
--- NOTE | 2019-04-12 19:43 | RADIOLOGY REPORT (SQ) ---
EXAM DESCRIPTION: MRI LUMBAR SPINE COMBO COMPLETED DATE/TIME: 04/12/2019 7:24 pm REASON FOR STUDY: Severe lumbar pain after lumbar injection COMPARISON: None. TECHNIQUE: Sagittal and Axial imaging includes T1, T1 post gadolinium, T2, STIR and gradient echo se quences. Coronal T2/HASTE imaging. CONTRAST TYPE AND DOSE: 10 mL Dotarem. RENAL FUNCTION: Not indicated. ACR Type II contrast agent associated with few, if any, unconfounded cases of NSF LIMITATIONS: None. FINDINGS: VISUALIZED UPPER ABDOMEN: Limited evaluation. No acute or suspicious findings suggested. SEGMENTATION: No transitional anatomy. The lowest well-developed disc space is labeled L5-S1. ALIGNMENT: Grade 1 anterolisthesis of L4 over L5 related to advanced facet arthropathy VERTEBRAE: Intact. No fractures. BONE MARROW: Normal. No marrow replacement or reactive changes. DISC SIGNAL: Normal. No significant abnormal signal or loss of height. POSTERIOR ELEMENTS: Generally intact. No pars defect evident. HARDWARE: None in the spine. CORD AND CONUS: Normal in size and signal intensity. Conus at the L1 level. SOFT TISSUES: No aortic aneurysm seen. No bulky retroperitoneal adenopathy or mass. No paraspinal mas s or fluid. L1-L2: No significant spinal stenosis or exit foraminal stenosis. Mild bilateral facet hypertrophy L2-L3: No significant spinal stenosis or exit foraminal stenosis. Mild bilateral facet hypertrophy L3-L4: Mild diffuse posterior disc bulging, moderate bilateral facet hypertrophy. Borderline central canal narrowing. No significant foraminal stenosis L4-L5: Grade 1 anterolisthesis of L4 over L5, broad diffuse posterior disc bulging, bulky bilateral f acet hypertrophy causes mild central canal narrowing with flattening of the thecal sac into a triangu lar shape, best shown on axial T2 image 27. There is mild bilateral inferior foraminal narrowing wit hout exiting L4 nerve root impingement. L5-S1: Minimal posterior disc bulging, mild facet hypertrophy. No central or foraminal stenosis LOWER THORACIC: Incompletely imaged. No stenosis seen. SACRUM: Visualized upper sacrum intact. ENHANCEMENT: No abnormal conus or lumbar nerve root enhancement. No abnormal vertebral body or poste rior element enhancement. No evidence of abnormal epidural fluid collection in the lumbar spine. IMPRESSION: Central canal stenosis at L4-5 TECHNICAL DOCUMENTATION: JOB ID: [id number] [employer]- All Rights Reserved Reading location - IP/workstation name: [email or web address]
[2019-04-12 20:23] VITALS: BP 140/88
== END 2019-04-12 20:20 | disposition home or self-care (01) ==
LOC: ER 14:13
DX: G89.29 Other chronic pain (principal); M54.5 Low back pain; M48.061 Spinal stenosis, lumbar region without neurogenic claudication; E78.00 Pure hypercholesterolemia, unspecified; I10 Essential (primary) hypertension; J44.9 Chronic obstructive pulmonary disease, unspecified; Z90.710 Acquired absence of both cervix and uterus; Z87.442 Personal history of urinary calculi
CPT/HCPCS: 99284; 36415; 85025; 80053; 81001; 72158; A9576

== ENCOUNTER → 2019-07-24 | Outpatient (CLI) | payer MEDICARE, MEDICAID ==
--- NOTE | 2019-07-24 18:01 | RADIOLOGY REPORT (SQ) ---
EXAM DESCRIPTION: L SPINE 2 VIEWS COMPLETED DATE/TIME: 07/24/2019 4:58 pm REASON FOR STUDY: M54.16 RADICULOPATHY, LUMBAR REGION, M43.16 SPONDYLOLISTHESIS, LUMBAR REGIO M54.16 RADICULOPATHY, LUMBAR REGION M43.16 SPONDYLOLISTHESIS, LUMBAR REGION COMPARISON: 04/12/2019 NUMBER OF VIEWS: Three views. TECHNIQUE: AP, lateral, and inferior coned down lateral views of the lumbar spine. LIMITATIONS: None. FINDINGS: MINERALIZATION: Normal. SEGMENTATION: Normal. No transitional anatomy. ALIGNMENT: Normal. VERTEBRAE: Maintained height. No fracture or worrisome bone lesion. DISCS: Interbody disc spacer at the L4-5 level. Otherwise preserved height. POSTERIOR ELEMENTS: Pedicles are intact. Posterior fusion hardware -decompression at the L4-5 levels .. Facet arthropathy is present. HARDWARE: Posterior fusion hardware -decompression at the L4-5 levels. PARASPINAL SOFT TISSUES: Normal. PELVIS: Intact as visualized. No fractures or worrisome bone lesions. SI joints intact. OTHER: No other significant finding. IMPRESSION: SPONDYLOSIS WITHOUT BONE LESION OR FRACTURE. Posterior fusion hardware -decompression at the L4-5 levels. TECHNICAL DOCUMENTATION: JOB ID: [id number] [place]-72 2010 [employer]- All Rights Reserved Reading location - IP/workstation name: [employer]
== END ==
LOC: RAD 16:37
PROVIDERS: ATTEND Physician Assistant
DX: M54.16 Radiculopathy, lumbar region (principal); M43.16 Spondylolisthesis, lumbar region
CPT/HCPCS: 72100

== ENCOUNTER → 2019-10-31 | Outpatient (CLI) | payer MEDICAID, MEDICARE ==
--- NOTE | 2019-10-31 20:26 | RADIOLOGY REPORT (SQ) ---
EXAM DESCRIPTION: MR LUMBAR SPINE WITHOUT THEN WITH IV CONTRAST COMPLETED DATE/TME: 10/31/2019 17:29 CLINICAL HISTORY: 59 years, Female, M54.16 RADICULOPATHY, LUMBAR REGION M54.5 LOW BACK PAIN COMPARISON: Prior study from 04/12/2019; CT from 10/10/2016 TECHNIQUE: Multiplanar, multisequence MR images of the lumbar spine were obtained both prior to and after the administration of intravenous contrast. Images stored on PACS. LIMITATIONS: None. FINDINGS: Drop Hammer Set Up Operator images show no suspicious finding. Conus medullaris is normal in signal and morphology, terminating at the T12 level. Anterior and posterior ligamentous structures are intact. Multilevel disc desiccation is evident. No epidural fluid collections are appreciated. There are postsurgical changes of posterior decompression/fusion spanning L4-L5 with interbody spacer placement. In addition, there is grade 1 anterolisthesis of L4 upon L5 which appears similar to the previous study dated 04/12/2019. Mild bone marrow edema is noted about the L4 and L5 vertebral bodies, likely reactive/postsurgical. Otherwise, lumbar vertebral body heights are maintained. Degenerative changes are as follows: T10-T11 appears normal. At T11-T12, there is minimal disc bulge without foraminal or central canal stenosis. T12-L3 appear normal. At L3-L4, there is minimal disc bulge with superimposed bilateral facet/ligament flavum hypertrophy. No significant foraminal or central canal stenosis. At L4-L5, there is mild disc bulge with uncovering of the posterior aspect of the disc. This contributes to mild bilateral neural foraminal stenosis. No central canal stenosis. At L5-S1, there is minimal disc bulge without static and foraminal or central canal stenosis. Postcontrast images reveal no foci of abnormal enhancement. Paravertebral soft tissues show no suspicious abnormality. However, there is nodular enlargement of the left adrenal gland which is unchanged from 10/10/2016, indicative of a benign adenoma. IMPRESSION: Postsurgical changes of posterior fusion spanning L4-L5, as above. Otherwise, minimal multilevel lumbar spondylosis with grade 1 anterolisthesis of L4 upon L5. Overall, this results in only mild bilateral neural foraminal stenosis at L4-L5. No significant central canal stenosis at any level. copyright 2010 [employer]- All Rights Reserved
== END ==
LOC: RAD 17:27
PROVIDERS: ATTEND Nurse Practitioner Family
DX: Z97.8 Presence of other specified devices (principal); M54.16 Radiculopathy, lumbar region; M54.5 Low back pain
CPT/HCPCS: 82565; 72158; A9576